=== PATIENT | female | born 1970 | race Caucasian/White ===

== ENCOUNTER 2018-02-15 02:36 | Inpatient (IN) | payer SELFPAY ==
[~2018-02-15] VITALS: Ht 167.6 cm; Wt 77.1 kg
[2018-02-15 02:50] VITALS: Ht 167.6 cm; Wt 77.1 kg
[2018-02-15 03:43] LABS: BASOPHIL % 0.3 % (0-2); PLATELET COUNT 297 x10^3mcL (130-400); RED CELL DISTRIBUTION WIDTH 13.1 % (11.5-14.5)
[2018-02-15 03:55] LABS: CALCIUM 8.8 mg/dL (8.5-10.1); CHLORIDE SERUM 104 mmol/L (98-107); GFR1 > 60 mL/min; GLUCOSE SERUM 134 mg/dL (74-106); POTASSIUM SERUM 3.1 mmol/L (3.5-5.1); SODIUM SERUM 143 mmol/L (136-145)
[2018-02-15 04:07] LABS: ALBUMIN 3.8 g/dL (3.4-5.0); ALKALINE PHOSPHATASE 108 U/L (46-116); ALT/SGPT 18 U/L (14-59); AST/SGOT 12 U/L (15-37); BILIRUBIN TOTAL 0.28 mg/dL (0.20-1.00); LIPASE 91 IU/L (73-393); TOTAL PROTEIN, SERUM 7.4 g/dL (6.4-8.2)
[2018-02-15 04:16] LABS: UA SPECIFIC GRAVITY >=1.030 (1.005-1.035); microscopic required? YES; urine erythrocyte TRACE (NEGATIVE)
[2018-02-15 04:47] LABS: AMPHETAMINE QUAL UR NONE DETECTED (See below)
[2018-02-15] MEDS ORDERED: CYMBALTA60 M1 PO (09:11)
[2018-02-15] MEDS ORDERED: MORPHINE SULFAT15 MG (09:11)
[2018-02-15] MEDS ORDERED: NEU300 PO (09:12)
[2018-02-15 09:56] LABS: MAGNESIUM 2.2 mg/dL (1.8-2.4); PHOSPHOROUS 3.8 mg/dL (2.5-4.9)
[2018-02-15 10:10] LABS: CHOLESTEROL/HDL RATIO 3.4
[2018-02-15 11:20] VITALS: BP 108/67
[2018-02-15] MEDS ORDERED: TIZANIDINE4 M1 PO (11:40)
[2018-02-15] MEDS ORDERED: DULOXETINE30 MG PO (11:40)
[2018-02-15] MEDS ORDERED: METHOTREXA25 MG/1 M1 SQ ×2 (11:41→22:33)
[2018-02-15 13:34] VITALS: BP 109/64
[2018-02-15 16:37] VITALS: BP 112/73
[2018-02-15 21:02] VITALS: BP 127/87
[2018-02-15] MEDS ORDERED: GABAPENTIN600 M1 PO ×2 (22:26)
[2018-02-15] MEDS ORDERED: NEURONTIN300 MG PO (22:27)
[2018-02-15] MEDS ORDERED: MORPHINE SULFAT60 MG PO ×2 (22:28)
[2018-02-15] MEDS ORDERED: NORCO1 TA2 PO (22:30)
[2018-02-15] MEDS ORDERED: MORPHINE SULFAT30 M6 PO (22:33)
[2018-02-16 05:39] VITALS: BP 102/54
[2018-02-16 06:07] LABS: BASOPHIL % 0.2 % (0-2); PLATELET COUNT 241 x10^3mcL (130-400); RED CELL DISTRIBUTION WIDTH 13.8 % (11.5-14.5)
[2018-02-16 06:20] LABS: CALCIUM 8.3 mg/dL (8.5-10.1); CARBON DIOXIDE 25.7 mmol/L (21-32); CHLORIDE SERUM 109 mmol/L (98-107); CREATININE SERUM 0.6 mg/dL (0.6-1.0); GFR1 > 60 mL/min; GLUCOSE SERUM 128 mg/dL (74-106); POTASSIUM SERUM 3.9 mmol/L (3.5-5.1); SODIUM SERUM 142 mmol/L (136-145)
[2018-02-16 08:22] VITALS: BP 98/67
[2018-02-16 13:07] VITALS: BP 112/72
[2018-02-16 16:15] VITALS: BP 112/72
[2018-02-16 16:30] VITALS: BP 113/65
== END 2018-02-16 17:37 | disposition home or self-care (01) | DRG 73 ==
LOC: ED 02:36 → EDBD 08:33 → DU 08:33
PROVIDERS: Emergency Medicine; Internal Medicine
DX: G90.8 Other disorders of autonomic nervous system (principal); N17.0 Acute kidney failure with tubular necrosis; G89.29 Other chronic pain; M54.9 Dorsalgia, unspecified; F41.9 Anxiety disorder, unspecified; E87.6 Hypokalemia; E78.2 Mixed hyperlipidemia; R00.0 Tachycardia, unspecified; M32.9 Systemic lupus erythematosus, unspecified; F32.9 Major depressive disorder, single episode, unspecified; Z98.1 Arthrodesis status
CPT/HCPCS: 83880; 84439; 94150; G0480; J1100; J2060; J2543; J3480; J7030; Q0092